=== PATIENT | female | born 1945 | race Caucasian/White ===

== ENCOUNTER 2024-06-16 02:21 | Observation (INO) | payer MEDICARE, OTHER, SELFPAY ==
[2024-06-15 21:29] VITALS: BP 153/74
[2024-06-15 21:52] VITALS: BP 167/89
[2024-06-15 22:00] VITALS: BP 137/72
[2024-06-15 22:00] LABS: % Basophils 0.7 % (0-2); % Eosinophils 2.3 % (0-6); % Immature Granulocytes 0.2 % (0-0.5); % Monocytes 9.3 % (1.7-9.3); % Neutrophils 58.5 % (42.2-75.2); Absolute Eosinophils 0.1 10^3/uL (0-0.7); Absolute Lymphocytes 1.2 10^3/uL (1.2-3.4); Absolute Monocytes 0.4 10^3/uL (0.1-0.6); Absolute Neutrophils 2.5 10^3/uL (1.4-6.5); Hematocrit 39.8 % (37.0-47.0); Hemoglobin 13.2 g/dL (12.0-16.0); Mean Corp Hgb Conc. 33.2 g/dL (33.0-37.0); Mean Corpuscular Hgb 32.7 pg (27.0-31.0); Mean Corpuscular Volume 98.5 fL (81.0-99.0); Mean Platelet Volume 9.1 fL (7.4-10.4); Nucleated Red Blood Cells % 0 %; Platelet Count 273 10^3/uL (130-400); Red Blood Cell Count 4.04 10^6/uL (4.20-5.40); Red Cell Dist. Width 12.4 % (11.5-14.5); White Blood Cell Count 4.3 10^3/uL (4.8-10.8)
[2024-06-15 22:16] LABS: ALT (SGPT) 25 U/L (0-35); AST (SGOT) 29 U/L (14-36); Albumin 4.5 g/dl (3.5-5.0); Alkaline Phosphatase 77 U/L (38-126); Blood Urea Nitrogen 27 mg/dl (7-17); Calcium 9.8 mg/dl (8.4-10.2); Carbon Dioxide 30 mmol/L (22-30); Chloride 102 mmol/L (98-107); Estimated Creatinine Clearance 57 ml/min; Glucose 116 mg/dl (70-99); Potassium 3.7 mmol/L (3.5-5.1); Sodium 139 mmol/L (135-145); Total Bilirubin 0.8 mg/dl (0.2-1.3); Total Protein 7.6 g/dl (6.3-8.2); eGFR > 60.00
[2024-06-15 22:24] LABS: Troponin I < 0.012 ng/ml
[2024-06-15 23:00] VITALS: BP 138/67
--- NOTE | 2024-06-15 23:04 | ED.GENMED ---
History of Present Illness
General
Chief Complaint: Chest Pain
Time Seen by Provider: 06/15/24 21:45
History of Present Illness
History of Present Illness:
78-year-old female with history of hypertension and cardiomyopathy presents to the emergency department for evaluation of left-sided chest pain that began at approximately 4:30 PM today. She states she was at home when the pain began, promptly went
[facility] and continued to have pain and thus was encouraged to come to the hospital by friends. On arrival the pain subsided. On my evaluation the patient reports no pain. She denies any fever, chills, sweats, nausea, vomiting, or diarrhea.
Patient is a challenging historian and speaks in tangential patterns however after review and discussion with the patient's daughter, it appears that she was taken to a hospital in [facility] [place] 2 months ago experiencing dizziness and
left arm tingling, underwent a cardiac catheterization that was clean but apparently was diagnosed with Takotsubo cardiomyopathy. This information is all word of mouth from the patient's daughter as I have no formal records at this time. Patient
states she had no chest pain at that time. She does have a history of A-fib and has been compliant with Eliquis. Daughter indicates to me that she is a chronic alcoholic but has decreased her alcohol intake recently, seems to have some
experiencing cognitive decline over the past 6+ months that is presumably related to her alcohol misuse
Review of Systems
Review of Systems
Allergies reviewed?: Yes
All Other Systems: ROS reviewed and negative except as documented in HPI and ROS
Phy Exam
Physical Exam
Physical Exam:
GEN: Well appearing, NAD, WDWN
HEENT: Oral mucosa moist, no scleral icterus
Cardiac: Regular rate and rhythm, no murmur
Lung: No respiratory distress, no tachypnea, lungs clear to auscultation bilaterally
MSK: No gross deformity or injuries
Skin: Good color, no pallor or jaundice, no rashes
Neuro: AO x3, moves all extremities freely
Psych: Calm, cooperative
Scores
Heart Score for Chest Pain Patients
STEMI patient?: No
History: Moderately Suspicious
ECG: Significant ST-Depression
Age: >/= 65 years
Risk Factors: 1 or 2 Risk Factors
Troponin: </= Normal Limit
Heart Score for Chest Pain Patients: 6
Heart Score Risk: 20.3% MACE over next 6 weeks
Course
Orders/Labs/Results
Orders:
Orders
06/15/24 21:12
Electrocardiogram (*1) Urgent
Reason for Study: Chest Pain
EKG- Treatment ONCE
06/15/24 21:47
Alcohol Urgent
Comprehensive Metabolic Panel Urgent
06/15/24 21:48
Complete Blood Count/With Diff Urgent
NT-proBNP Urgent
Comment: ADD ON
Troponin I Urgent
06/15/24 22:35
Electrocardiogram (*1) Urgent
Reason for Study: Chest Pain
EKG- Treatment ONCE
06/15/24 23:04
Add On- LAB Urgent
Tests Added?: BNP, alcohol
06/16/24 00:09
EKG- Treatment ONCE
CR Chest - 2 Views Urgent
Reason For Exam: chest pain
06/16/24 00:15
Nitroglycerin Sublingual [Nitrostat (Sublingual)] 0.4 mg SL NOW STA
06/16/24 01:00
Electrocardiogram (*1) Urgent
Reason for Study: Chest Pain
Troponin I Routine
Abnormal Lab Results
06/15/24 06/15/24
21:47 21:48
WBC 4.3 L 10^3/uL
(4.8-10.8)
RBC 4.04 L 10^6/uL
(4.20-5.40)
MCH 32.7 H pg
(27.0-31.0)
BUN 27 H mg/dl
(7-17)
Glucose 116 H mg/dl
(70-99)
06/15/24 21:48
06/15/24 21:47
Vital Signs
Initial and Last Documented VS:
Initial Vital Signs
Temp Pulse Resp BP Pulse Ox
98.2 F 84 20 153/74 98
06/15/24 21:29 06/15/24 21:29 06/15/24 21:29 06/15/24 21:29 06/15/24 21:29
Last Documented Vital Signs
Temp Pulse Resp BP Pulse Ox
98.2 F 62 14 159/83 96
06/15/24 21:06/16/24 00:00 06/16/24 00:00 06/16/24 00:00 06/16/24 00:00
MDM/Problems Addressed
MDM/Problems Addressed:
78-year-old female presents with chest pain occurring intermittently. Her EKG is ischemic with inferior lateral ST depressions and T wave inversions. Initial troponin negative. Pain wax and wane without obvious provoking factors in the ED.
Although she reportedly had a clean cardiac catheterization about 2 months ago while vacationing in [place], her EKG is concerning and I have no priors for comparison. Record request was sent to her treating hospital in [place] ([facility]) but at this point no records have been received. Will admit to the hospitalist service for further management of potential ACS
Comment
Comment:
EKG independently interpreted by me shows normal sinus rhythm with ST depressions inferiorly and laterally as well as T wave inversions in V5 and V6
*Critical Care Note
Total Time (30-74mins, 75-104mins- exclusive of procedures): Not Applicable
ED Attending Note
-
Portions of this chart may have been created with voice recognition software.� Occasional wrong word or��sound alike� substitutions may have occurred due to the inherent limitations of voice recognition software.
Discharge Plan
Departure
Patient Disposition: Admit
Date of Disposition: 06/16/24
Time of Disposition: 00:19
Admit to: Telemetry
Presentation/result/management discussed w/ accepting MD/DO: Hospitalist
Discharge Problem:
ACS (acute coronary syndrome)
Referrals:
Esme Warner MD [Family Provider] -
Interventions
Interventions:
*Risk Screen - Suicide Last Done: 06/15/24 21:55
*General Assessment Last Done: 06/15/24 21:29
*Neglect/Abuse Screening Last Done: 06/15/24 21:55
ED- Fall Risk Assessment Last Done: 06/15/24 22:21
*ED COVID-19 Vaccine History Last Done: 06/15/24 21:55
ED- Cardiac Assessment Last Done: 06/15/24 22:21
Discharge Date and Time
Print Language: MALAY
[2024-06-15 23:43] LABS: NT-proBNP 366 pg/ml
[2024-06-16] VITALS (10 sets, daily range): BP systolic 115–165; BP diastolic 52–85
[2024-06-16] LABS: Alcohol None Detected
[2024-06-16] MEDS: NITROSTAT (SUBLINGUAL) 0.4 MG SL (00:34)
--- NOTE | 2024-06-16 00:38 | EDRN ---
After nitro patient states her pain is slightly better, seems uncertain if there is pain there or not.
[2024-06-16] MEDS: NITRO-BID 1 INCH TOPICAL (01:26)
--- NOTE | 2024-06-16 01:35 | EDRN ---
When repeating patient EKG and labs, patient reports she has left middle back pain, informed Dr. Jo who wanted me to put some nitropaste on patient, Dr. Lugo into room as well now to do admission, informed him of the complaint and what Dr. Jo
had me do.
[2024-06-16 01:50] LABS: Troponin I < 0.012 ng/ml
--- NOTE | 2024-06-16 02:31 | HPS.HSE ---
Family Physician
-
Family Physician: Esme Warner
Chief Complaint
-
Chest Pain
History of Present Illness
Patient is a 78y F with PMH significant for A-Fib and hypertension who presents to ED complaining of chest pain. Patient states that she noted L sided chest pain this afternoon around 3 PM. She states that she was doing 'normal things around
the house' at time of symptom onset - though she cannot be more specific. No associated diaphoresis, SOB, N/V, etc. Patient presented to the ED for evaluation. Her pain has waxed and waned here in the ED. She currently complains of some L flank
discomfort as well.
Patient was hospitalized in [place] in April for complaints of SOB and 'left arm dizziness'. She was noted there to have troponin elevation (1236 - ? scale) and concerning EKG. She underwent cardiac catheterization with clean coronaries. Echo
was done showing 'stress induced cardiomyopathy pattern with slightly decreased ejection fraction'. Records from [facility] in [place] reviewed including H&P, discharge summary and cath report. No other specifics (EKG, Echo report, etc)
received.
Patient notably had no pain syndrome at all during that event.
She has since felt well until this afternoon.
Medical History
Past Medical History
Past Medical History: Reports Other
Additional Past Medical History:
Paroxysmal Atrial Fibrillation
Hypertension
Takotsubo's Cardiomyopathy
Past Surgical History: Reports Other
Additional Past Surgical History:
Appendectomy
Cardiac cath (normal - April 2024)
Social History
Tobacco: Non-smoker
Alcohol: Occasional (Patient states occasional alcohol use. Family indicates that she drinks to excess historically.)
Drug: None
Family History
Family History: Other (Mother: DM PGF: CAD)
Allergies / Home Medications
Allergies reflects when Allergies were last updated in [facility] [facility].
Home Medications with original date entered in [facility] [facility]
Allergy/Medication List:
Allergies
Allergy/AdvReac Type Severity Reaction Status Date / Time
No Known Allergies Allergy Unverified 06/15/24 21:29
Home Medications
apixaban 5 mg tablet (Eliquis) 5 mg PO BID 06/16/24
losartan 25 mg tablet (Cozaar) 25 mg PO DAILY 06/16/24
metoprolol succinate 25 mg tablet,extended release 24 hr 25 mg PO DAILY 06/16/24
Review of Systems
-
History Source: Patient
A 12 point ROS was completed and negative except as noted: Yes
Constitutional: Denies Fever or Chills
Respiratory: Denies Cough or Trouble Breathing
Cardiac: Reports Chest Pain; Denies Diaphoresis, Palpitations or Syncope
Abdomen/GI: Denies Abdominal Pain, Nausea, Vomiting or Diarrhea
: Reports Flank Pain; Denies Dysuria or Frequency
Musculoskeletal: Denies Joint Pain or Edema
Neurological: Denies Dizzy or Headache
Psych: Denies Depression or Anxiety
Physical Exam
Vital Signs
Vital Signs
Temp Pulse Resp BP Pulse Ox
98.2 F 66 15 141/71 98
06/15/24 21:29 06/16/24 01:30 06/16/24 01:30 06/16/24 01:26 06/16/24 01:30
Physical Exam
General: Other (78y F in no acute distress.)
HEENT: Moist mucous membranes and PERRLA
Respiratory: Clear; No Wheezes, Rales or Rhonchi
Cardiac: S1/S2 and Regular Rhythm; No Murmur
GI: Soft, Non Tender, Non Distended and Normal Bowel Sounds
Musculoskeletal: No Clubbing, No Cyanosis and No Edema
Neuro: AO x 3 and Nonfocal/grossly intact
Laboratory Results
-
06/15/24 21:48
06/15/24 21:47
Laboratory Results
Total Bilirubin 0.8 mg/dl (0.2-1.3) 06/15/24 21:47
AST 29 U/L (14-36) 06/15/24 21:47
ALT 25 U/L (0-35) 06/15/24 21:47
Alkaline Phosphatase 77 U/L (38-126) 06/15/24 21:47
Troponin I < 0.012 ng/ml 06/16/24 01:02
Impression/Plan
-
A/P: Patient is a 78y F with PMH significant for A-Fib, HTN and Takotsubo's cardiomyopathy who presents to ED complaining of chest pain.
Chest Pain
- Observe overnight for further evaluation and treatment.
- Coronary occlusion / ischemia seems highly unlikely given two undetectable troponin and completely normal cath one month ago.
- Complete 3rd troponin in AM.
- Cardiology evaluation for additional recommendations.
- ? musculoskeletal source of pain - supportive care.
Recent Takotsubo's Cardiomyopathy
- Unclear to what extent EF was depressed - sounds minimal by report.
- No evidence of volume overload on exam - has not taken any of her as needed Lasix.
- Cath was done and completely normal as noted above.
Paroxysmal Atrial Fibrillation
- Stable. Continue metoprolol and Eliquis.
Benign Hypertension
- Stable. Continue losartan.
Alcohol Use Disorder
Generalized Anxiety
- Likely contributing to symptoms / presentation.
- MSAS protocol / BZDs if needed. EtOH negative in the ED.
- Follow-up with PCP re: any benefit to anxiolytic medications / SNRI / etc.
DVT Prophylaxis: On Eliquis
Code Status: Full
[2024-06-16] MEDS: TYLENOL 650 MG PO (05:45)
--- NOTE | 2024-06-16 05:51 | EDRN ---
Patient complained of pain, asked for tylenol, gave per order, call sims in reach.
[2024-06-16 05:56] LABS: Hematocrit 35.2 % (37.0-47.0); Hemoglobin 11.7 g/dL (12.0-16.0); Mean Corp Hgb Conc. 33.2 g/dL (33.0-37.0); Mean Corpuscular Hgb 32.2 pg (27.0-31.0); Mean Platelet Volume 9.1 fL (7.4-10.4); Platelet Count 258 10^3/uL (130-400); Red Blood Cell Count 3.63 10^6/uL (4.20-5.40); Red Cell Dist. Width 12.4 % (11.5-14.5); White Blood Cell Count 4.2 10^3/uL (4.8-10.8)
[2024-06-16 06:18] LABS: Troponin I < 0.012 ng/ml
[2024-06-16 06:20] LABS: Blood Urea Nitrogen 25 mg/dl (7-17); Carbon Dioxide 29 mmol/L (22-30); Chloride 106 mmol/L (98-107); Estimated Creatinine Clearance 50 ml/min; Glucose 95 mg/dl (70-99); HDL Cholesterol 85 mg/dl; LDL Cholesterol, Calculated 75 mg/dl; Potassium 4.4 mmol/L (3.5-5.1); Sodium 140 mmol/L (135-145); Total Cholesterol 177 mg/dl (50-199); Triglyceride 88 mg/dl (10-149); Very Low Density Lipoprotein 17 mg/dl (0-30); eGFR > 60.00
[2024-06-16] MEDS: MORPHINE SULFATE 2 MG IV ×2 (06:42→10:50)
--- NOTE | 2024-06-16 06:54 | EDRN ---
Patient reports tylenol didn't do anything and is asking for something else, medicated with morphine as ordered.
[2024-06-16] MEDS: COZAAR 25 MG PO (07:49)
[2024-06-16] MEDS: FOLVITE 1 MG PO (07:49)
[2024-06-16] MEDS: LOW STRENGTH ASPIRIN 81 MG PO (07:49)
[2024-06-16] MEDS: TOPROL XL 25 MG PO (07:50)
[2024-06-16] MEDS: ELIQUIS 5 MG PO (07:50)
[2024-06-16] MEDS: THIAMINE INJECTION 200 MG IV (07:52)
--- NOTE | 2024-06-16 08:24 | W.PN.HOSP.TC ---
Today's Communication/Plan
-
see PN
Assessment / Plan
Assessment / Plan
78yo F with PMHx of Afib on eliquis, HTN admission to hospital in [facility] on 05/01/24 with L arm numbness and concern for NSTEMI, found stress-induced CM during cardiac cath with no significant CAD, came with onset of L chest dull pain radiating to the
back, intermittent, not related to breathing, not reproducible, and not related to the change of the body position or exertion, occuring few times per minute.
A/P:
#L chest pain, atypical
#Stress-induced CM
Serial trop WNL
EKG with SR 1st degree AVB with no overt ST segment elevation
LDL 75
Check HgbA1c and TSH
Telemetry and cardiology consult
CT chest reasonable with low suspiscion of cardiac etiology as well since proBNP 366 (NS bolus 500ml for contrast)
check lipase since pain radiating to back
#Essential HTN, poorly controlled
#Afib, persistent
cont home meds
#Mild leukopenia
follow with PCP
DVT ppx Eliquis
Full code
I have spent at least 57min reviewing chart, test results, communication with consultants and direct patient care
Anticipated Discharge: Within 24 hours
Subjective/Interval History
-
Date of Service: June 16, 2024
Objective Data
-
Labs:
Laboratory Results
06/15/24 06/15/24 06/16/24
21:47 21:48 05:40
WBC 4.3 L 4.2 L
Hgb 13.2 11.7 L
Hct 39.8 35.2 L
Plt Count 273 258
Sodium 139 140
Potassium 3.7 4.4
Chloride 102 106
Carbon Dioxide 30 29
BUN 27 H 25 H
Creatinine 0.7 0.8
Glucose 116 H 95
Calcium 9.8 9.0
Total Bilirubin 0.8
AST 29
ALT 25
Alkaline Phosphatase 77
Vital Signs:
Vital Signs
Temp Pulse Resp BP Pulse Ox
98.2 F 78 16 152/80 98
06/15/24 21:29 06/16/24 08:00 06/16/24 08:00 06/16/24 08:00 06/16/24 08:00
Review of Systems
-
History Source: Patient
All other systems: Reviewed and negative
Cardiac: Reports Chest Pain
Physical Exam
-
General: Well Developed, Well Nourished and No Apparent Distress
HEENT: Normocephalic, Atraumatic and Moist Mucous Membranes
Respiratory: Clear to Auscultation; Negative Wheezes, Rales or Rhonchi
Cardiac: Irregular Rhythm
GI: Soft, Nontender and Nondistended
Musculoskeletal: No Clubbing, No Cyanosis and No Edema
Skin: Warm
Neuro: Awake, Alert, Oriented and AO x 3
Psych: Calm
[2024-06-16 08:45] LABS: Lipase 91 U/L (23-300)
--- NOTE | 2024-06-16 08:55 | CON.CAR ---
Addendum entered and electronically signed by Ti Villalobos MD 06/16/24 12:34:
I saw and examined the patient.
The Resident's note was reviewed and I agree with the note.
Comment: 78yo F with PMHx of Afib on eliquis, HTN admission to hospital in [facility] on 05/01/24 with L arm numbness and concern for NSTEMI, found stress-induced CM during cardiac cath with no significant CAD, came with onset of L chest dull pain
radiating to the back, intermittent, not related to breathing, not reproducible, and not related to the change of the body position or exertion, occurring few times per minute.
This is most likely non-cardiac CP given neg troponins, and normal cath just about a month ago. Her ECG changes could be explained by changes associated with Takutsubo [employer].
Her NICMO is likely alcohol related and stress-induced.
- Recommend start Imdur 30 mg daily
- cont other meds
- She has follow up with Dr Leone this June 21
Original Note:
Consultation
Consultation Request
Date/Time Consultation Requested: 06/16/2024
Date/Time Consultation Performed: 06/16/2024
Requesting Provider: Dr. Ti Villalobos
Performing Provider: Dr. Ti Villalobos
Reason for Consultation: Chest pain
Medical History
-
History of Present Illness:
78-year-old female with past medical history of A-fib controlled on Eliquis and metoprolol, h/o Takotsubo cardiomyopathy, HTN presented with left-sided chest pain. She describes left-sided chest pain as sharp occurring every half a minute radiating
to the mid upper back. She admits to having chest pain at rest. 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 She was taken to the [facility] where she had an echo and a stress test
done. She did not have the test results with her. She denies any past history of CAD, PAD, ME,CVA. She denies SOB, palpitations.
Past Medical History
Past Medical History: Arrhythmias, HTN and Other (Takotsubo cardiomyopathy)
Past Surgical History: Appendectomy and Cardiac (Cath (-Apr 2024))
Social History
Tobacco: Non-Smoker
Alcohol: Occasional
Drug: None
Allergies / Home Medications
Allergy/AdvReac Type Severity Reaction Status Date / Time
No Known Allergies Allergy Unverified 06/15/24 21:29
�Medication �Instructions �Recorded �Confirmed �Type
apixaban 5 mg tablet (Eliquis) 5 mg PO BID 06/16/24 06/16/24 History
losartan 25 mg tablet (Cozaar) 25 mg PO DAILY 06/16/24 06/16/24 History
metoprolol succinate 25 mg 25 mg PO DAILY 06/16/24 06/16/24 History
tablet,extended release 24 hr
Review of Systems
-
All other systems: Negative unless noted
Cardiac: Chest Pain
Physical Exam
Vital Signs
Temp Pulse Resp BP Pulse Ox
98.2 F 78 16 152/80 98
06/15/24 21:29 06/16/24 08:00 06/16/24 08:00 06/16/24 08:00 06/16/24 08:00
Lab Results
06/16/24 05:40
06/16/24 05:40
Troponin I < 0.012 ng/ml 06/16/24 05:40
Vel-Y-Raeusonujsj Pept 366 pg/ml 06/15/24 21:48
Physical Exam
General: No Apparent Distress and Comfortable
HEENT: Normocephalic and Anicteric
Respiratory: Clear
Cardiac: S1/S2 and Regular Rhythm
GI: Soft, Non Tender and Non Distended
Musculoskeletal: No Edema
Neuro: AO x 3
Psych: Calm
Impression / Plan
-
78-year-old female with history of A-fib on Eliquis, Takotsubo cardiomyopathy, had cardiac cath in April 2024 which was normal, presented with left-sided chest pain. Cardiology was consulted for this for further recommendation.
Assessment and PLAN :
Left-sided chest pain
Normal troponin levels
History of Takotsubo cardiomyopathy. Cardiac cath in Apr 2024- normal
EKG changes showing T wave inversion from V4-V6
These EKG changes are more likely due to T. cardiomyopathy
ASA daily.
No further testing is needed for now.
Atrial fibrillation
Rate controlled with metoprolol
Continue current medication
Data Reviewed
-
EKG: Report Reviewed by me and Discussed with Physician
[2024-06-16] MEDS: NSS 500 IV (08:56)
[2024-06-16 09:26] LABS: TSH Reflex To Free T4 4.69 uIU/ml (0.47-4.68)
[2024-06-16 09:56] LABS: Free T4 0.99 ng/dl (0.78-2.19)
[2024-06-16 11:25] LABS: Glycohemoglobin (HgbA1c) 5.4 % (4.0-5.6)
--- NOTE | 2024-06-16 12:55 | W.DCSUMMARY ---
Addendum entered and electronically signed by Foreign Reyes MD 06/16/24 18:18:
Minimal elevation of TSH with normal FT4, no indication for synthroid
Original Note:
Discharge Summary
Discharge Data
Date of Admission: 06/16/24
Date of Discharge: 06/16/24
-
Pending Results: No
Hospital Course
78yo F with PMHx of Afib on eliquis, HTN admission to hospital in [facility] on 05/01/24 with L arm numbness and concern for NSTEMI, found stress-induced CM during cardiac cath with no significant CAD, came with onset of L chest dull pain radiating to the
back, intermittent, not related to breathing, not reproducible, and not related to the change of the body position or exertion, occuring few times per minute. Serial troponin WNL. As per agreement with cardiology - no additional inpatient test
indicated, started imdur and [facility]. With normal lipase, normal chest CT - pain most liekly musculoskeletal or alcohol-induced gastritis. Patient has established
flow specialist and encouraged to follow up with them for EGD. PPI trial and alcohol cessation advised. Medically stable for d/c
I have spent at least 57min reviewing chart, test results, communication with consultants and direct patient care
Patient was managed for:
#L chest pain, atypical
#Stress-induced CM
#Essential HTN, poorly controlled
#Afib, persistent
#alcohol use disorder
#Mild leukopenia
Discharge Plan
-
Patient Disposition: Home (Routine Discharge)
Discharge Diagnosis/Procedures: chest pain
Diet: Low Cholesterol
Activity: As tolerated
Referrals:
Esme Warner MD [Family Provider] -
Additional Discharge Medication Instructions: Schedule appointment with your established wood inspector in 2-3 weeks
Prescriptions:
New
pantoprazole 40 mg tablet,delayed release (DR/EC)
40 mg PO DAILY Qty: 30 0RF
acetaminophen [Tylenol] 325 mg tablet
650 mg PO Q6H PRN (Reason: Pain) Qty: 90 0RF
folic acid 1 mg Tablet
1 mg PO DAILY Qty: 30 0RF
thiamine mononitrate (vit B1) 100 mg Tablet
100 mg PO DAILY Qty: 30 0RF
isosorbide mononitrate 30 mg tablet extended release 24 hr
30 mg PO DAILY Qty: 30 0RF
Continued
losartan [Cozaar] 25 mg Tablet
25 mg PO DAILY
metoprolol succinate 25 mg Tablet Extended Release 24 Hr
25 mg PO DAILY
Eliquis 5 mg Tablet
5 mg PO BID
therapeutic multivitamin Tablet
1 tab PO DAILY
acyclovir 5 % Ointment
1 applic TOPICAL DAILYPRN PRN (Reason: face-cold sores)
Discharge Orders:
Discharge Patient (As Directed); Ordered 06/16/24
Ordered By: Foreign Reyes
Discharge Date and Time
Print Language: BELIZEAN
== END 2024-06-16 13:52 | disposition home or self-care (01) ==
LOC: ED 02:21
PROVIDERS: Physician Assistant; ADMITTING PHYSICIAN Hospitalist; ATTENDING PHYSICIAN Internal Medicine; CONSULT PHYSICIAN Internal Medicine Cardiovascular Disease; EMERGENCY PHYSICIAN Emergency Medicine; FAMILY PHYSICIAN Internal Medicine
DX: R07.89 Other chest pain (principal); I24.9 Acute ischemic heart disease, unspecified; I11.9 Hypertensive heart disease without heart failure; Z79.899 Other long term (current) drug therapy; Z79.01 Long term (current) use of anticoagulants; F41.1 Generalized anxiety disorder; F10.10 Alcohol abuse, uncomplicated; Z90.49 Acquired absence of other specified parts of digestive tract; I48.19 Other persistent atrial fibrillation; D72.819 Decreased white blood cell count, unspecified; I44.0 Atrioventricular block, first degree; K29.20 Alcoholic gastritis without bleeding; Z82.49 Family history of ischemic heart disease and other diseases of the circulatory system; Z83.3 Family history of diabetes mellitus; I51.81 Takotsubo syndrome
CPT/HCPCS: 71046; 71260; 80048; 80053; 80061; 82077; 83036; 83690; 83880; 84439; 84443; 84484; 85025; 85027; 93005; 96374; 99285; G0378; Q9967